=== PATIENT | female | born 1950 | race Caucasian/White ===

== ENCOUNTER → 2024-08-11 14:43 | Outpatient (CLI) | payer OTHER, SELFPAY ==
--- NOTE | 2024-08-11 14:46 | DI.RAD.S_ITS ---
PROCEDURE: XR CHEST 2V INDICATIONS: Cough TECHNIQUE: 2 views of the chest were acquired. COMPARISON: None. FINDINGS: Surgical changes and devices: None. Lungs and pleura: Linear left lower lobe opacity likely scarring. Mediastinum: Mediastinal contours are normal. Heart size is normal. Bones and chest wall: No suspicious bony abnormalities. Soft tissues appear unremarkable. IMPRESSION: No consolidation. Dictated by: Lynsey Galdamez M.D. on 08/11/2024 at 16:31 Approved by: Lynsey Galdamez M.D. on 08/11/2024 at 16:31
== END ==
PROVIDERS: PCP Nurse Practitioner Family; Referring Provider Nurse Practitioner Family; Visit Provider Nurse Practitioner Family
DX: R05.9 Cough, unspecified (principal)
CPT/HCPCS: 71046

== ENCOUNTER 2025-01-09 07:27 | Day surgery (SDC) | payer OTHER, SELFPAY ==
--- NOTE | 2024-12-20 13:46 | P.HPOB_ITS ---
History of Present Illness
--- NOTE | 2024-12-20 13:46 | PM.GYNHP.1 ---
History of Present Illness History of Present Illness Narrative: Kennedi Christian is a 74 year old female Date of procedure:?? 01-09-25 Preoperative diagnosis:? Uterine prolapse, cystocele, rectocele Stress urinary incontinence Planned Procedure:?? TVH, USVS, A&P repair, sling, cystoscopy Postop Meds Tylenol 1000 mg, ?3 times a day? Motrin 400 mg (over age 65 yr) 3 times a day Oycodone 5 mg,? take 1 pill every 4-6 hr as needed, # 15? Colace,? 1 pill BID, for constipation CC: Severe prolapse HPI: 74-year-old female who presents for evaluation of above complaint.?? She reports onset of symptoms 5 years ago worse over the last 6-12 months.?? She considers this a? Moderate? problem. She is interested in surgery to correct her problem She reports a vaginal bulge of the size of an orange that has been getting worse over the last year. First noted about 5 years ago. She still works as a sports complex attendant and does a fair amount of exertion on her job so definitely would need 6 weeks off falling surgery. She has prolapse symptoms of a large vaginal bulge, pelvic pressure and heaviness, splinting for voids, incomplete bladder emptying. She has normal bowel function, no splinting, minimal straining. Exam demonstrates a stage III prolapse to +6 cm that the cervix at +5. She desires surgery for the prolapse. Declines a pessary. No prior treatment for the prolapse. She also has stress incontinence that has been bothering her for the last few where years, getting worse. She leaks several times a day. Uses a regular pad in the day and another 1 at night. She has stress incontinence with a triggers below. Exam demonstrated a positive cough stress test with the prolapse reduced confirming the diagnosis of stress incontinence. No prior treatment for the stress incontinence She also has overactive bladder symptoms, voids every 1 hour in the day, 3-4 times at night, leaks with an urge on the way to the toilet at least once or twice a day no prior use of overactive bladder medications. She has done Kegel's. Exam demonstrates a postvoid residual of 150 cc, but she last voided 1.5 hours ago and was unable to void prior to the exam. It is likely that her postvoid residual is in the normal range. prior hyst -no -x4 c-sec -0 Pelvic Floor Review of Systems: (HPI) Stress Urinary Incontinence symptoms (RODRIGO): Up to 10 times per day Triggers include:??? cough, sneeze, laugh, exercise, lifting, walking, standing ? Urge Incontinence symptoms (Urge UI): At least once or twice a day Triggers include:??? [Full bladder with urge,? ? Pads: She wears 2 regular pads a day Overactive Bladder symptoms (OAB):? ? Frequency:?? Voids every hour Nocturia:?? Times 3-4 Urgency:?? Moderate Prior incontinence treatment includes:? Medical:? []? Surgical:? No? Kegels:?? Yes Physical therapy:?No? Pessary:?No? Diet / Fluids: Fluid restriction:? No Excessive fluids:?No Pain symptoms:? Painful bladder:???No Dysuria:??? No Dyspareunia:? No Dysmenorrhea:? No Urinary Risk Factors UTI?s, recurrent:? No Hematuria:? No Kidney Stones:?No? Tobacco use:? No Pelvic Organ Prolapse (POP) symptoms:?? Bulge:?Yes Pressure and /or? Heaviness:?Yes Splint for defecation or voiding:???Yes for voiding Voiding dysfunction: Abnormal stream:? No Strain to void:? No Incomplete emptying: Yes Voiding difficulty: Yes Retention:??? No Bowel Function: Constipation:?No Strain to defecate:?No Fiber:?No Laxatives:?No Fecal Incontinence:? Liquid stool:? No Solid stool:?No?? Sexual function Sexually active:? No Incontinence with sex:? No ? General Review of Systems: Constitutional, CV, Endo, Musc-skel, Eyes, Cancer, Skin, Breast, GI, Heme/Lymph, Psych, Urinary, Neuro, Supervisor Paint, Resp, Sexual:??? Pertinent positives listed above in HPI All others reviewed and negative. All reviewed on patient questionnaire.? . . [facility] Medical History (Updated 11/15/24 @ 12:38 by Luis A Carrillo MD) Cystocele, midline OAB (overactive bladder) Stress incontinence, female Rectocele Comment: Medications Amlodipine Atorvastatin benzonatate carvedilol Vaginal estrogen cream Flonase for allergies Allergies No Known Drug Allergies Allergy (Verified 11/15/24 11:31) Medications fluticasone propionate 50 mcg/actuation nasal spray,suspension (Flonase Allergy Relief) 1 spray intranasal Q12H #16 grams 05/05/23 [Rx Confirmed 11/15/24] amlodipine 10 mg tablet 10 mg PO DAILY 08/11/24 [History Confirmed 11/15/24] atorvastatin 10 mg tablet 10 mg PO DAILY 08/11/24 [History Confirmed 11/15/24] benzonatate 200 mg capsule 200 mg PO BID PRN cough #28 caps 08/11/24 [Rx Confirmed 11/15/24] carvedilol 6.25 mg tablet 6.25 mg PO BID 08/11/24 [History Confirmed 11/15/24] estradiol 0.01% (0.1 mg/gram) vaginal cream (Estrace) See Rx Instructions .Route .COMPLEX #42.5 grams 11/08/24 [Rx Confirmed 11/15/24] Past surgery, none Medical history notable for high blood pressure, history of skin cancer, seasonal allergies, elevated lipids Social history, , no tobacco, moderate alcohol, no substance abuse . Family history, no relevant issues related to this Tobacco & Substance Use Smoking Status: Never smoker Exam Vitals 11/15/2510:32 Height 5 ft 5 in Weight 190 lb BMI 31.6 BP 142/75 H Blood Pressure Location Lt radial Position Sitting Pulse 70 Pulse Source Monitor Pulse Oximetry (%) 95 Oxygen Delivery Method room air General: healthy, alert, coherent, no acute distress, cooperative, nontoxic Pulmonary: normal breathing, no distress Abdomen: soft, no mass, non-distended, no hernia, non-tender Vulva: Normal labia majora, labia minora, introitus, and clitoris, non-tender Urethra meatus: normal, no discharge Perineum: Normal, non-tender Urethra: No mass, non-tender Bladder: no mass, non-tender Vagina: No lesions, no discharge, + atrophy, non-tender Prolapse stage III prolapse with large cystocele and uterine prolapse. There is a [id number] rectocele but there is a gaping opening of the levator muscles posteriorly allowing all of her prolapse to occur. Definitely needs levator plication to restore normal anatomy and prevent prolapse recurrence Levators: Non-tender, Cervix: nl , No lesions, no discharge, non-tender Uterus: normal size, non-tender Bimanual: no mass, no adnexal mass, non-tender Anus: No lesion, non-tender, no hemorrhoid Empty Cough Stress test: Positive PVR: 150 mL by catheter, last void was 1.5 hours ago so probably has a normal postvoid residual. We will follow postoperatively Urethral angle hypermobile: Yes POP-Q Exam: Aa: +2 Ba: +6 Ap: -1 Bp: +2 C: +5 D: -4.5 TVL: 9.5 GH: 4 PB: 1.5 Introitus size: 3 fingerbreadths Cystocele stage: 3 Rectocele stage: 2 Uterine/Vault Prolapse Stage: 3 Assessment & Plan (1) Procidentia of uterus: Status: Acute (2) Rectocele: Status: Acute (3) Stress incontinence, female: Status: Acute (4) OAB (overactive bladder): Status: Acute (5) Cystocele, midline: Assessment and Plan ? Patient counseled regarding above conditions.? Educational materials given to patient. 1. Pelvic Organ Prolapse - Stage 3.? This diagnosis and its etiology was discussed with the patient.? Treatment options were discussed including: expectant management, pessary trial, and surgical intervention. We briefly discussed risks and benefits of surgery. All surgery for prolapse is not 100% successful and there is a chance of recurrence or failure. She declines a Pessary Trial for Prolapse she desires surgery my recommendation = TVH, USVS, A&P repair, sling, cystoscopy we also discussed TLH, RobSC, sling, and hyst with colpocleisis, and large pessary see below for counseling 2. Stress Urinary Incontinence with urethral hypermobility:? This diagnosis was discussed with the patient. The etiology was explained. Treatment options were discussed including expectant management, pelvic floor exercises, pessary trial, and surgical intervention (mid-urethral sling, Elise urethropexy, P-V sling, Paula urethral plication, urethral bulking injection).? Risks and benefits of surgery were briefly outlined. Dx RODRIGO confirmed today We discussed that she is a candidate for a Midurethral Sling as treatment of her stress incontinence. Success rate of being dry from stress incontinence is about 80-85%; another 10-15% of patients are markedly improved but not cured;? 1-2% will fail, and 1-2% will need the sling cut because it is too tight.? The risk of temporary urinary retention requeiring temporary catheterization is about 15-20%; risk of urinary retention requiring sling release procedure is about 1-2%, as noted above.? We discussed the small 1-3% of mesh erosion as well as the small risk of de reshma urgency.? This procedure is not designed to treat Urge Incontinence symptoms; however, 30-50% of patients with overactive bladder/ urgency urinary incontinence will have improvement in these symptoms, in 30% these symptoms will stay the same, and in 20-30% these symptoms will worsen. see below for counseling 3. Overactive bladder and urge incontinence.?? This diagnosis and its etiology was discussed with the patient.? Treatment options were discussed including: Behavior changes ( Limit fluid intake, Avoiding fluid intake 3 hours before bedtime, Avoiding bladder irritants / follow bladder diet, Bladder training exercises), Kegel / pelvic floor muscle exercises,? OAB Medications, and procedures to include:? bladder botox A injections, Interstim, and PTNS.?? OAB handout given.? No OAB med treatment for now, just behavior changes. reassess OAB sx after the POP repair, often these sx improve after surgery treat later prn Surgical Counselling Note Patient seen for surgical counselling.? She desires surgical repair. Please see? H & P for exam and discussion. Date of procedure:?? 01-09-25 Preoperative diagnosis:? Uterine prolapse, cystocele, rectocele Stress urinary incontinence Planned Procedure:?? TVH, USVS, A&P repair, sling, cystoscopy Postop Meds Tylenol 1000 mg, ?3 times a day? Motrin 400 mg (over age 65 yr) 3 times a day Oycodone 5 mg,? take 1 pill every 4-6 hr as needed, # 15? Colace,? 1 pill BID, for constipation Patient counseled extensively about the Risks, Benefits, and Alternatives to surgery.? She was offered the opportunity to ask any questions, and all questions were answered. ? Surgical Risks include: Bleeding, Hemorrhage, Transfusion, Infection (especially wound or bladder), Injury to adjacent organs (especially bladder, ureter, bowel, blood vessels, nerves), Postop or Chronic Pain, need for Reoperation, and Life-threatening event (especially M.I., CVA, PE, DVT). Procedure Risks include: Failure to Cure condition, Recurrence of condition months or years later, Urinary incontinence, Voiding dysfunction or Urinary Retention with prolonged catheter use, Poor wound healing, Erosions of any mesh or graft used, Dyspareunia, Vaginal scarring or narrowing, Need for additional surgery (immediate or delayed).? The expected cure and improvement and failure rates were discussed. Patient counseled to avoid the following for 6 weeks after surgery: (1) Impact sports (like running or jumping), walking and stairs OK (2) Lifting over 20# (3) Sexual intercourse No limits after 6 weeks. ? Good exercise tolerance, > 4 Mets. Her current medications were reviewed, and instructions given over which to use and which to discontinue before surgery.? Post-operative care instructions reviewed.? We discussed post-operative pain: Pain should be in the mild-moderate range, but can be moderate-severe for the first few days.?? Prescriptions will typically be given for (1) acetaminophen (Tylenol) and (2) non-steroidal anti-inflammatory drug (NSAID, like Motrin or Naprosyn), use both together, around the clock. Prescription will also be given for a (3) narcotic pain medication. Use the narcotic as needed, as a booster to the Tylenol and NSAID. You might need 0-4 narcotic pills a day typically. The narcotic will only be needed for a few days.?? Gradually use less of the narcotic, but continue the Tylenol and NSAID.? After a few days, the narcotic should no longer be needed, and only the Tylenol and NSAID will be needed.? Warm packs or cold packs can also be used for pain.??Do not drive for as long as you are using the narcotic pain medication? - this should only be a few days.?? Constipation is associated with use of narcotic pain medications, and can be improved with use of a stool softener, or fiber, or a mild laxative.? If you are sent home from the hospital with a Jackman Catheter in place:? please call the office on the day after surgery We will usually remove the catheter 2-4 days after surgery: a. You will perform an at home Jackman catheter removal -or- b. You will come in to the office for a voiding trial, (For some unusual surgeries, we might leave the catheter in for up to 2 weeks, and then remove it.) Instructions for at home Jackman catheter removal..... For at-home Jackman catheter removal, this can be done on postop day 2 or 3 or 4, depending on various factors. 1. At 6 or 7 a.m., have the patient cut the Jackman catheter with scissors, while standing in a shower or bath tub. a. Cut the catheter right in the middle of the tubing, about 6 inches from the body. b. The sterile water that is inside the Jackman balloon will leak all over the floor of the shower or bath tub. This is expected. c. The catheter will either fall out of the urethra, or just gently pull on it and it will come out. 2. Now, the bladder will gradually fill up over the next few hours. 3. Go ahead and empty the bladder when you feel an urge to void. Please note how strong the urine stream is. a. If the urine stream is normal or close to normal, then everything is good to go. b. If the urine stream is slow or you can not void, then return to the clinic in the afternoon. We will place another Jackman catheter. We will repeat the voiding trial in 3-4 days. All of her questions were answered Luis A Carrillo MD UroGynecology & Pelvic Reconstructive Surgery [facility] Medical History (Updated 11/15/24 @ 12:38 by Luis A Carrillo MD) Cystocele, midline OAB (overactive bladder) Stress incontinence, female Rectocele Meds Home Medications and Allergies Home Medications ?Medication ?Instructions ?Recorded ?Confirmed ?Type fluticasone propionate 50 1 spray intranasal Q12H #16 grams 05/05/23 11/15/24 Rx mcg/actuation nasal spray,suspension (Flonase Allergy Relief) amlodipine 10 mg tablet 10 mg PO DAILY 08/11/24 11/15/24 History atorvastatin 10 mg tablet 10 mg PO DAILY 08/11/24 11/15/24 History benzonatate 200 mg capsule 200 mg PO BID PRN cough #28 caps 08/11/24 11/15/24 Rx carvedilol 6.25 mg tablet 6.25 mg PO BID 08/11/24 11/15/24 History estradiol 0.01% (0.1 mg/gram) See Rx Instructions .Route 11/18/24 Rx vaginal cream (Estrace) .COMPLEX #42.5 grams Allergies Allergy/AdvReac Type Severity Reaction Status Date / Time No Known Drug Allergies Allergy Verified 11/15/24 11:31 Assessment & Plan Time-Based Coding :: [TOTAL MINUTES] spent with patient and on the chart (including review of chart, obtaining history, exam, reviewing outside data, placing orders, documenting exam and treatment plan, and counseling patient) on [DATE].
[2024-12-27 12:47] VITALS: BMI 31.6
[2025-01-09] VITALS (12 sets, daily range): BP systolic 114–170; BP diastolic 52–88; PULSE 55–72; RESP 14–20; TEMP 36.1–36.8; O2SAT 88–97; BMI 32.1
[2025-01-09] MEDS: ACETAMINOPHEN 325 MG TABLET 975 MG PO (08:02)
[2025-01-09] MEDS: PHENAZOPYRIDINE 100 MG TABLET 200 MG PO (08:09)
[2025-01-09] MEDS: GABAPENTIN 300 MG CAPSULE PO (08:09)
[2025-01-09] MEDS: LACTATED RINGERS 1,000 ML 42 ML IV ×2 (08:41→15:47)
[2025-01-09] MEDS: CELECOXIB 200 MG CAPSULE PO (08:46)
[2025-01-09] MEDS: ONDANSETRON 4 MG/2 ML INJ IV (08:46)
--- NOTE | 2025-01-09 08:50 | SUR.PREOP ---
Scop patch not placed per pt age and order per Josie WATERS.
--- NOTE | 2025-01-09 09:09 | P.OP.PRE_ITS ---
Pre-operative Note
--- NOTE | 2025-01-09 09:09 | PM.PREOP ---
Pre-operative Note Interval Note History & Physical reviewed/Exam performed by Physician: Yes Changes to H&P: No
--- NOTE | 2025-01-09 09:56 | SUR.OPER ---
Lithotomy on padded OR bed, head on pillow, arms secured on padded arm boards at <90 degrees abduction. Legs secured in padded yellow fins stirrups. Safety strap across upper abdomen.
[2025-01-09] MEDS: LIDOCAINE 1% W/EPI 10ML 20 ML INJ ×2 (10:01→12:20)
[2025-01-09] MEDS: FUROSEMIDE 40 MG/4 ML VIAL 5 MG IV (10:46)
--- NOTE | 2025-01-09 13:34 | P.OP_ITS ---
Operative Date/Time/Diagnoses
--- NOTE | 2025-01-09 13:34 | PM.GYNOP.1 ---
Operative Date/Time/Diagnoses Date of procedure: 01/09/25 Time of procedure: 10:00 Pre-op diagnosis: stage 3 cystocele, uterine prolapse, also stress incontinence Post-op diagnosis: same Procedure & Clinicians Procedure: Procedures Operation Date: 01/09/25 09:00 Actual Procedure Side Surgeon p Vaginal Hysterectomy, ureterosacral ligament vaginal suspension Luis A Carrillo MD s anterior and posterior repair Luis A Carrillo MD s sling cysto Luis A Carrillo MD Operative Notes Findings: Operative Note Surgeon:? Luis A Carrillo MD Crusher Setter:?? Shani De La Fuente MD Pre-Op Diagnosis:?? Uterine prolapse, cystocele, rectocele, Stress urinary incontinence Post-Op Diagnosis:?? Same? Procedure:?? Vaginal hysterectomy, uterosacral ligament vaginal vault suspension, anterior colporrhaphy, TVT mid-urethral sling, cystoscopy posterior colpoperineorrhaphy, Findings (brief): ? 1.? EUA with stage 3 POP as noted on preop exam. BA +6. Large ballooning cystocele Normal size uterus, tubes, ovaries.?? TVH in usual fashion.?? severe cervix elongation, about 7 cm. ? 2.? USVS with 2 sutures of 0-PDS on each side.? Excellent apical support when done.? Cystoscopy with bilateral ureteral jets noted.? 3.? Anterior colporrhaphy in usual fashion. First layer with running suture of 2-0 Vicryl to repair the bladder fascia. Then with 5 interrupted mattress sutures of 2-0 Vicryl to plicate the vaginal mucosa. Approximately 3 x 6 cm of redundant vaginal mucosa excised on each side ? 4.? TVT sling placed at mid-urethra, tension-free.? Cystoscopy with normal bladder, urethra, ureters,? no trocar injury. ? 5.? Posterior colpoperineorrhaphy in usual fashion. Initially with a 3-4 fingerbreadths introitus. Two-finger caliber at end of case. First layer with running 2-0 Vicryl to repair the rectovaginal fascia. Then with 4 interrupted sutures of 2-0 Vicryl to plicate the levators. Approximately 5 x 7 cm gulshan excision of redundant vaginal mucosa at the introitus and perineum and lower vagina Date of Surgery:? January 09, 2025 Complications:? None Specimens:? Cervix, uterus Anesthesia Technique:?? General endotracheal Estimated Blood Loss (mls):? 300 Blood Replacement (mls):? none Drains:? Cano Condition:? Stable Procedure in detail: After consent was confirmed, the patient was taken to the operating room and placed under general anesthesia without incident.? Sequential compression devices were in place and active.? She received perioperative antibiotics.? She was then prepped and draped in the usual sterile fashion after placement in the dorsal lithotomy position using the Phuc stirrups.? A Cano catheter was placed.? A weighted speculum was placed in the vagina and the cervix was grasped with a tenaculum. The cervix was circumferentially injected with 10-20 cc of 0.5% lidocaine / epinephrine 1:200,000.? A circumferential incision was made with electrocautery through the vaginal mucosa and carried down to the underlying cervical stroma. The posterior peritoneum was entered sharply and a retractor was placed.? Curved Julia clamps and 0-vicryl sutures were used.? The uterosacral ligaments were clamped, cut, and ligated bilaterally, and then tagged for use later in the case.? The anterior peritoneum entered sharply, and a cano catheter was placed.? The cardinal ligaments were clamped, cut, and ligated bilaterally.? The uterine vessels were clamped, cut, and ligated bilaterally. The broad ligaments were clamped, cut, and ligated bilaterally.? The utero-ovarian ligaments were clamped, cut, and ligated bilaterally, and the cervix and uterus were removed.? Inspection of all pedicles was completed and hemostatis was assured.? The fallopian tubes and ovaries appeared grossly normal an were left in situ. ? A large laparotomy surgical sponge was placed into the pelvis and a Palouse retractor was used to elevate the sponge and bowel to expose the pelvic sidewalls and utero-sacral ligaments.? Tension was placed on the previously tagged left Utero-Sacral ligament, and 2 sutures of 0-PDS were placed through the U-S ligament, just above the ischial spine, and tagged for use later.? The same procedure was done on the right U-S ligament.? Cystoscopy was performed to confirm ureteral patency with a 70 degree lens. The bladder and ureters were normal and bilateral ureteral efflux with pyridium was seen, first without and then with traction on the U-S ligament suspension sutures, confirming ureteral patency.? The large sponge was removed.?? Attention was then turned to the anterior vaginal wall. The anterior vaginal mucosa was grasped with Allis clamps and was injected with 10-20 cc of 0.5% lidocaine / epinephrine 1:200,000.? A midline incision was made with a scalpel, from the U-V junction to the apex. The vaginal mucosa was dissected off of the underlying pubocervical fascia until the sidewalls were reached.?? The bladder fascia was plicated with running 2-0 vicryl, and then the vaginal mucosa was plicated with horizontal mattress sutures of 2-0 vicryl. Excess anterior vaginal mucosa was trimmed and the incision was closed with 2-0 vicryl. ? The 2 Left U-S ligament suspension sutures were passed through the left side of the vaginal apex, approximately at the left apical sidewall at the tagged left utero-sacral ligament, then about 1 -2 cm medial. The same procedure was done on the Right side. The vaginal cuff was closed with 2 running, locked sutures of 0-vicryl. The U-S ligament suspension sutures were tied, elevating the vaginal apex several centimeters deep into the pelvis. With the Cano catheter in place, the anterior vaginal mucosa beneath and lateral to the urethra was injected with 10-20 cc of? 0.5% lidocaine / epinephrine 1:200,000.? A 2-3 cm midline incision was made at the level of the midurethra with a scapel. Metzenbaum scissors were used to dissect the vagina from the urethra and then create tunnels beneath the vaginal mucosa up toward the pubic bone on each side.? A marking pen was used to pop the skin just above the pubic bone and 2 cm from the midline bilaterally, and two small 8-10 mm incisions were made on the suprapubic skin.? The trocar was passed from the right vaginal tunnel, behind the pubic bone, to the right suprapubic incision, and this was repeated on the left side.? The Cano catheter was removed, and cystoscopy was performed with a 70 degree lens. There was no trocar injury, and the bladder, ureters, and urethra were normal.? The Cano catheter was reinserted.? The sling was pulled into position in a tension-free manner, and a Paula clamp was easily passed between the sling and the urethra.? The plastic sheaths were removed to anchor the sling, and tension was checked again. The ends of the sling were trimmed just below the skin, and the skin incisions were cleaned and closed with dermabond. The vaginal incision was closed with 2-0 vicryl in a running fashion. ? Attention was then turned to the posterior vaginal wall. The posterior vaginal mucosa was grasped with Allis clamps and was injected with 10-20 cc of 0.5% lidocaine / epinephrine 1:200,000.? A gulshan-shaped incision was made at the posterior vaginal introitus over the distal vaginal mucosa and perineal skin, and this skin / mucosa was dissected off of the perineal body.? A midline incision was continued up the posterior vaginal mucosa with the Metzenbaum scissors. The vaginal mucosa was dissected off of the underlying rectovaginal fascia / rectum until the side jenkins were reached.??The rectovaginal fascia was plicated with a running suture of 2-0 Vicryl. The posterior vaginal levators were plicated with horizontal mattress sutures of 2-0 vicryl.? A rectal exam was performed during the placement of the sutures to avoid rectal injury.? No sutures were noted in the rectum at the end of the procedure.? Excess posterior vaginal mucosa was trimmed and the incision was closed with 2-0 vicryl.? A perineorrhaphy was performed with 2-0 vicryl suture.? Hemostasis was noted. Sponge, needle and instrument count was correct.? The patient tolerated the procedure well and was taken to the recovery room in stable condition. An additional set of hands was needed to perform the surgery, so a rn surgical was needed for the case. The assistant spa manager provided retraction and exposure throughout the case. Luis A Carrillo MD UroGynecology & Pelvic Reconstructive Surgery [place], [place] Applied: implant(s) (TVT mesh sling )
--- NOTE | 2025-01-09 13:44 | SUR.PHASEI ---
report given to Helen.
--- NOTE | 2025-01-09 15:01 | PC.ADMIT ---
[email or web address] Admission Note: Pt arrived to room 231 at approximately 1500. A&Ox4, able to pivot from PACU gurney to bed with mild dizziness reported. VS WDL. Lungs clear, lap sites to mounds pubis open to air. Oriented pt to room and call light. Care ongoing. The patient,Kennedi Christian,74 y/o, was given written information regarding hospital policies, unit procedures and contact persons. Patient's smoking status: Never smoker. Vital Signs - 8 hr 01/09/25 08:30 01/09/25 13:27 01/09/25 13:30 Temperature 98.3 F 97.1 F L Pulse Rate 72 64 64 Respiratory Rate 15 17 17 Blood Pressure 170/79 H 129/60 115/58 L Pulse Oximetry 97 88 L 89 L Oxygen Delivery Method Room Air Nasal Cannula Simple Mask Oxygen Flow Rate 4 6 01/09/25 13:35 01/09/25 13:41 01/09/25 13:55 Temperature 97 F L Pulse Rate 64 59 L 59 L Respiratory Rate 17 14 16 Blood Pressure 121/59 L 114/52 L 131/58 L Pulse Oximetry 89 L 93 95 Oxygen Delivery Method Simple Mask Simple Mask Simple Mask Oxygen Flow Rate 8 10 10 01/09/25 14:06 01/09/25 14:11 01/09/25 14:26 Temperature Pulse Rate 60 58 L 58 L Respiratory Rate 15 16 14 Blood Pressure 128/88 124/60 123/84 Pulse Oximetry 95 94 96 Oxygen Delivery Method Room Air Room Air Room Air Oxygen Flow Rate
[2025-01-09 17:53] LABS: MRSA (Nasal) PCR NOT DETECTED (Not Detect)
[2025-01-09] MEDS: KETOROLAC 30 MG/ML VIAL 15 MG IV (20:31)
[2025-01-09] MEDS: DOCUSATE 100 MG CAPSULE PO (20:31)
[2025-01-10] MEDS: KETOROLAC 30 MG/ML VIAL 15 MG IV ×2 (02:44→07:53)
[2025-01-10 03:00] VITALS: BP 145/65; PULSE 64; RESP 18; TEMP 36.9; O2SAT 91
--- NOTE | 2025-01-10 06:13 | PC.NURSE ---
pt rested quietly in bed overnight, states mild discomfort from surgery, x2 lap sites intact, small amt of serosang discharge from vagina, cano draining rochelle yellow urine, slightly blood tinged at times, DB&C encouraged and IS at bedside, O2 sats >92%, call hadley within reach, meds and labs as ordered, care ongoing
[2025-01-10] MEDS: ACETAMINOPHEN 325 MG TABLET 975 MG PO (07:53)
[2025-01-10 10:01] VITALS: BP 146/72; PULSE 65
[2025-01-10] MEDS: DOCUSATE 100 MG CAPSULE PO (10:01)
[2025-01-10] MEDS: INFLUENZA HD VACCINE 0.5 ML SYRINGE IM (13:11)
--- NOTE | 2025-01-10 13:34 | CM.DANOTE ---
B DCP Assessment note pt is a 74yo F here [facility] vaginal hysterectomy with anterior/posterior repair [facility]OSPICE [facility]IA[facility] reviewed EMR. per chart, lives indep alone in [place]. pt works for [employer]. local son Lg is her NoK. per chart, cleared to dc home today with OP f/u. per RN, will dc with cathetor no needs. per chart, pt OOB with nursing. P: dc today home with family support and OP f/u. no identified barriers to safe dc home at this time. will continue to follow as needed in case any additional needs should arise KRISTEN Junior Discharge Planning/Care Management Advanced directive, confirm from FAMILY Start: 01/09/25 15:46 Freq: Q24H Status: Active Protocol: Document 01/09/25 15:46 AMPARO (Rec: 01/09/25 18:36 AMPARO [id number]) Advance Directive, confirm on record Time 18:36 Person contacted son Copy received No CM Discharge Assessment Start: 01/09/25 15:03 Freq: Status: Active Protocol: Document 01/10/25 13:33 SL (Rec: 01/10/25 13:34 SL [id number]) Discharge Planning Assessment Assigned Discharge KRISTEN Powell Brake Adjuster Insurance Comment UMR DPOA/Assigned rupert Castanon Designee Name Contact Information [phone] Advance Directives? Yes Advance Directives No on File History Provided By Patient Prior Living House Arrangements Household Members none Type of Drives own vehicle transporation used prior to admit Independent with ADL Yes 's Is patient alert and Yes oriented? Discharge Plan Home Referrals Initiated None needed Review Status In Process Please Provide Date 01/10/25 Initial DC Assessment Was Performed Next Review Type Continued Stay Review Pre-Anesthesia Assessment Start: 12/27/24 12:47 Freq: Status: Active Protocol: Document 12/27/24 12:47 CAB (Rec: 12/27/24 12:59 CAB [id number]) Pre-Anesthesia Assessment Information obtained Chart review via Height 165.1 cm Weight 86.183 kg Body Mass Index (BMI 31.6 ) Has patient seen a Yes specialist in last 12 months? If yes, specialist Associate Sales Representative,Urologist seen Does patient have None history of Is patient on No anticoagulant therapy? Does patient have No history of a pacermaker/ICD? Cardiac Clearance Not Applicable Received Does patient have None history of Does patient have No history of Sleep Apnea? Does patient have No any memory problems? Does patient have None history of Does patient have a No neurostimulator or pain stimulator? Does patient have No history of GERD? Does patient have No Diabetes? Insulin pump or No continuous glucose monitor? GLP-1? No Is patient ? No Is patient No ? Does patient have Yes history of cancer? If yes, what type? Skin cancer, type not reported Smoking status Never smoker Other substance use None
--- NOTE | 2025-01-10 14:32 | PC.NURSE ---
Patient did not pass voiding trial and was not able to void on her own. Re placed cano catheter without difficulty, patient tolerated well. Dr. Carrillo notified, and instructed for patient to dc home with cano maintenance and then patient to remove at home on Thursday morning (in 3 days) at 7am per Dr. Carrillo written instructions. Education and handouts for catheter, leg bag/overnight bag, as well as discharge instructions and medication handouts reviewed with patient. She states understanding and has no further questions or concerns at this time. IV removed in tact. Patient tolerating meals. Ambulated in halls with SB assist and then tolerated sitting up in chair. Mesh underwear with art pad in place. Patient escorted out via wheelchair with her daughter in law to discharge to home Patient states she has follow up already scheduled.
== END 2025-01-10 13:22 | disposition home or self-care (01) ==
LOC: OR 13:36 → ICU 14:34
PROVIDERS: Referring Provider Obstetrics & Gynecology; Visit Provider Obstetrics & Gynecology Gynecology
PROC: (CPT 58260; principal; 2025-01-09 09:00)
PROC: (CPT 58260; 2025-01-09 09:00)
PROC: 0TSD0ZZ Reposition Urethra, Open Approach (ICD-10-PCS; CPT 58260; 2025-01-09 09:00)
DX: N81.3 Complete uterovaginal prolapse (principal); N32.81 Overactive bladder; R33.9 Retention of urine, unspecified; N39.46 Mixed incontinence; R35.1 Nocturia; N36.41 Hypermobility of urethra; K59.00 Constipation, unspecified
CPT/HCPCS: 58260; 57288; 57283; 57260; 36415; 82962; 87797; 90471; 90662; C1771; J0689; J1100; J1885; J1938; J2405; J2704; J3010; J7120